=== PATIENT | female | born 2000 | race African-American/Black ===

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

== ENCOUNTER 2023-03-07 21:45 | Emergency (ER) | payer MEDICAID, OTHER ==
[~2023-03-07] VITALS: Ht 162.6 cm; Wt 67.0 kg
[2023-03-07 22:28] VITALS: BP 115/68; O2SAT 98
[2023-03-07 23:02] LABS: CLARITY URINE CLOUDY (CLEAR); COLOR URINE YELLOW (YELLOW); GLUCOSE URINE NEGATIVE (NEGATIVE); KETONES URINE NEGATIVE (NEGATIVE); LEUKOCYTE ESTERASE URINE 1+ (NEGATIVE); NITRITE URINE NEGATIVE (NEGATIVE); OCCULT BLOOD URINE NEGATIVE (NEGATIVE); PH URINE 6.5 (4.5-8.0); PROTEIN URINE TRACE (NEGATIVE); SPECIFIC GRAVITY URINE 1.026 (1.005-1.030)
[2023-03-07 23:24] LABS: BACTERIA URINE 1+; RBC URINE 0-2 /hpf (0-2); SQUAMOUS EPITHELIAL CELL URINE 3+ /lpf (RARE/1+)
[2023-03-08] MEDS ORDERED: ONDANSETRON 4MG ODT PO ONE (01:00)
[2023-03-08] MEDS ORDERED: CEPH500C2 MT (01:02)
[2023-03-08 01:30] VITALS: PULSE 67; RESP 14; TEMP 98.7
== END 2023-03-08 01:32 | disposition home or self-care (01) ==
LOC: ER 21:54
DX: H92.01 Otalgia, right ear (principal); H93.11 Tinnitus, right ear; R11.0 Nausea; N39.0 Urinary tract infection, site not specified; F12.10 Cannabis abuse, uncomplicated
CPT/HCPCS: 99283; 81003; 81025; Q0162